=== PATIENT | female | born 1970 | race Caucasian/White ===

== ENCOUNTER 2019-11-30 14:35 | Emergency (ER) | payer OTHER, SELFPAY ==
[2019-11-30 14:39] VITALS: BP 138/78; PULSE 94; RESP 14; TEMP 36.6; O2SAT 100
--- NOTE | 2019-11-30 14:52 | ED.GENADULT ---
HPI - General Adult General Chief complaint: Urogenital-Female Stated complaint: POS UTI Time Seen by Provider: 11/30/19 14:52 Source: patient and RN notes reviewed Mode of arrival: ambulatory Limitations: no limitations History of Present Illness HPI narrative: 48-year-old female presents with urinary complaints for 1 day. Dysuria consist of hematuria, uncomfortable feeling, frequency, and urgency.? No treatment.? Denies fever or chills. No significant pelvic pain. No vaginal discharge.? No concerns for STDs. Exacerbating factors urinating.? Denies vaginal bleeding. Denies being , LMP 10/22/19 irregular.? No flank pain. Denies nausea, vomiting, and abdominal pain.? Tolerating liquids well.? Remains active. The patient reports she have not been diagnosed with COVID-19. The patient reports she is not waiting for the results of a COVID-19 lab test. The patient reports she do not have fever, chills, weakness, or fatigue. The patient reports she do not have a new or worsening cough or shortness of breath. Denies chest pain. The patient reports she do not have any rhinorrhea, congestion, sore throat, and diarrhea. Denies recent traveling. Denies concerns for COVID-19 or exposures been home with limited outdoor exposure except for essential household needs and return home. At this time, patient is not suspected of having COVID-19. Some parts of this dictation were generated by voice recognition software and may contain typographical and/or grammatical inaccuracies. Related Data Home Medications Medication Instructions Recorded Confirmed fluoxetine 20 mg capsule 20 mg PO DAILY 03/19/19 11/30/19 lorazepam 0.5 mg tablet 0.5 mg PO DAILY PRN 03/19/19 11/30/19 Allergies Allergy/AdvReac Type Severity Reaction Status Date / Time grass pollen Allergy Unknown RUNNY Verified 11/30/19 14:47 NOSE, ITCHY EYES Penicillins AdvReac FAINTING Verified 11/30/19 14:47 EPISODE Review of Systems Review of Systems: Narrative: CONSTITUTIONAL: Denies fever, chills, sweats. EYES: Denies visual changes, redness, discharge. ENT: Denies rhinorrhea, congestion, sore throat, otalgia. CARDIOVASCULAR: Denies chest pain, palpitations, edema. RESPIRATORY: Denies dyspnea, wheezing, cough. GASTROINTESTINAL: Denies abdominal pain, nausea, vomiting, diarrhea. GENITOURINARY: Complains of dysuria (uncomfortable feeling, frequency, and urgency), hematuria. Denies abnormal discharge. SKIN: Denies rash or itching. MUSCULOSKELETAL: Denies acute back pain, joint pain, or myalgia. NEUROLOGIC: Denies numbness or focal weakness. PSYCHIATRIC: Denies anxiety or depression. All systems reviewed & are unremarkable except as noted in HPI and below. [facility] Past Medical History Medical History Anxiety Pituitary benign neoplasm Visit for pre-operative examination Surgical History Surgical History H/O LEEP History of cryosurgery cervical Family History Family History Father Malignant neoplasm of prostate Mother Family history of malignant neoplasm of uterus Social History Social History (Updated 11/30/19 @ 15:09 by LAUREL Rodriguez) Smoking status: Never smoker Tobacco type: cigarettes Second hand tobacco smoke exposure: No Alcohol intake: current Substance use: never Living arrangements: with family Occupation/Education: unemployed Gender identity (if verbalized by the patient): Female Sexual Orientation (if Verbalized by the Patient): Straight or Heterosexual Comments At time of signature, agree with nurse past medical, surgical, social, and family history.? There is no relevant family history pertinent to the presenting complaint. Exam Narrative: Exam Narrative: GENERAL: This is a well-nourished, well-developed patient, in no appar
== END 2019-11-30 15:10 | disposition home or self-care (01) ==
PROVIDERS: Emergency Provider Nurse Practitioner Family; PCP Internal Medicine
DX: N39.0 Urinary tract infection, site not specified (principal); F41.9 Anxiety disorder, unspecified
CPT/HCPCS: 81003; 87077; 87086; 87088; 87186; 99213; G0463

== ENCOUNTER 2020-10-11 18:47 | Emergency (ER) | payer OTHER, SELFPAY ==
[2020-10-11 18:52] VITALS: BP 130/80; PULSE 70; RESP 16; TEMP 37.1; O2SAT 100
[2020-10-11 19:02] VITALS: BP 130/80; PULSE 70; RESP 16; TEMP 37.1; O2SAT 100
--- NOTE | 2020-10-11 19:04 | ED.GENADULT ---
HPI - General Adult General Chief complaint: Eye Problems Stated complaint: Hit in left Eye with a Ball Time Seen by Provider: 10/11/20 19:05 Source: patient and RN notes reviewed Mode of arrival: ambulatory Limitations: no limitations History of Present Illness HPI narrative: 49-year-old female presents with complaints of eye pain, photophobia, tearing, in left eye for the past 7.5 hours. Paty reports being hit in LT eye with a waffle ball today at approximally 11:20AM with increasing irritation to eye throughout the day. Ice, Aspirin with caffeine and lorazepam with some relief. ?Mild redness. Exacerbating factor consists of light. ?Little relieving factors consists of closing eyes. Denies blurred vision, double vision, or pain of eye with movement. ?Does not wear glasses or contact lenses. ?LMP 09/29/2020. ?Remains active. The patient reports she has not been diagnosed with COVID-19. The patient reports she received 2 Moderna COVID-19 vaccines. The patient reports she is not waiting for the results of a COVID-19 lab test. The patient reports she does not have fever, chills, weakness, or fatigue. The patient reports she does not have a new or worsening cough or shortness of breath. Denies chest pain. The patient reports she does not have any rhinorrhea, congestion, loss of taste or smell, sore throat, nausea, vomiting, abdominal pain, and diarrhea. Tolerating po intake well. Denies recent traveling. Denies concerns for COVID-19 or exposures. At this time, the patient is not suspected of having COVID-19. Some parts of this dictation were generated by voice recognition software and may contain typographical and/or grammatical inaccuracies. Related Data Home Medications Medication Instructions Recorded Confirmed lorazepam 0.5 mg tablet 0.5 mg PO DAILY PRN 03/19/19 10/11/20 cabergoline 0.5 mg PO 2XW 10/11/20 10/11/20 sumatriptan succinate 100 mg PO ONCE PRN 10/11/20 10/11/20 Allergies Allergy/AdvReac Type Severity Reaction Status Date / Time grass pollen Allergy Unknown RUNNY Verified 10/11/20 19:00 NOSE, ITCHY EYES Penicillins AdvReac FAINTING Verified 10/11/20 19:00 EPISODE Review of Systems Review of Systems: Narrative: CONSTITUTIONAL: Denies fever, chills, sweats. EYES: Denies visual changes. Complains of eye pain, photophobia, tearing, in left eye. ENT: Denies rhinorrhea, congestion, sore throat, otalgia. CARDIOVASCULAR: Denies chest pain, palpitations, edema. RESPIRATORY: Denies dyspnea, wheezing, cough. GASTROINTESTINAL: Denies abdominal pain, nausea, vomiting, diarrhea. SKIN: Denies rash or itching. MUSCULOSKELETAL: Denies acute back pain, joint pain, or myalgia. NEUROLOGIC: Denies numbness or focal weakness. PSYCHIATRIC: Denies anxiety or depression. All systems reviewed & are unremarkable except as noted in HPI and below. [facility] Past Medical History Medical History Anxiety Low grade squamous intraepithelial lesion (LGSIL) on cervical Pap smear Pituitary benign neoplasm Visit for pre-operative examination Surgical History Surgical History H/O LEEP History of cryosurgery cervical Family History Family History Father Malignant neoplasm of prostate Mother Family history of malignant neoplasm of uterus Social History Social History Smoking status: Never smoker Tobacco type: cigarettes Second hand tobacco smoke exposure: No Alcohol intake: current Substance use: never Gender identity (if verbalized by the patient): Female Comments At time of signature, I have reviewed and agree with the nursing past medical, surgical, social, and family history. ?Please see the nursing chart for further information. ?There is no relevant family history pe
--- NOTE | 2020-10-11 19:19 | PC.NURSE ---
1913-- PROVIDER REQUESTED VISUAL ACUITY WITH BOTH EYES TOGETHER. RESULT 20/20
== END 2020-10-11 19:43 | disposition home or self-care (01) ==
PROVIDERS: Emergency Provider Nurse Practitioner Family; PCP Internal Medicine
DX: S05.02XA Injury of conjunctiva and corneal abrasion without foreign body, left eye, initial encounter (principal); W21.09XA Struck by other hit or thrown ball, initial encounter; S05.92XA Unspecified injury of left eye and orbit, initial encounter; F41.9 Anxiety disorder, unspecified
CPT/HCPCS: 99213; A9270; G0463